=== PATIENT | male | born 1970 | race Caucasian/White ===

== ENCOUNTER → 2021-05-14 | Outpatient (CLI) | payer MEDICARE | LOC: CT 15:33 | PROVIDERS: ATTEND Internal Medicine | DX: J41.0 Simple chronic bronchitis (principal) | CPT/HCPCS: 71250 ==

== ENCOUNTER → 2024-08-31 | Outpatient (REF) | payer MEDICARE, OTHER | LOC: CT 15:44 | PROVIDERS: ATTEND Internal Medicine | DX: J43.8 Other emphysema (principal) | CPT/HCPCS: 71250 ==

== ENCOUNTER → 2025-02-06 | Outpatient (REF) | payer MEDICARE, OTHER | LOC: CT 13:47 | PROVIDERS: ATTEND Internal Medicine | DX: R91.1 Solitary pulmonary nodule (principal) | CPT/HCPCS: 71250 ==